=== PATIENT | female | born 1960 | race Caucasian/White ===

== ENCOUNTER 2016-11-15 21:38 | Emergency (ER) | payer OTHER ==
[~2016-11-15] VITALS: Ht 170.2 cm; Wt 100.0 kg
[2016-11-15 21:43] VITALS: BP 154/88
[2016-11-15] MEDS ORDERED: KETOROLAC 30 MG/1 ML ONE (22:23)
[2016-11-15] MEDS ORDERED: OXYcodone/APAP 5/325MG TABLET ONE (22:23)
[2016-11-15] MEDS ORDERED: CYCLOBENZAPRINE 10 MG TABLET PO ONE (22:30)
[2016-11-15] MEDS ORDERED: KETOROLAC 30 MG/1 ML IM ONE (22:30)
[2016-11-15] MEDS ORDERED: OXYcodone/APAP 5/325MG TABLET PO ONE (22:30)
[2016-11-15] MEDS ORDERED: CYCLOBENZAPRINE 10 MG TABLET ONE (23:05)
== END 2016-11-16 00:27 | disposition home or self-care (01) ==
LOC: ED 23:59
DX: S80.01XA Contusion of right knee, initial encounter (principal); S90.31XA Contusion of right foot, initial encounter; S93.401A Sprain of unspecified ligament of right ankle, initial encounter; W19.XXXA Unspecified fall, initial encounter; Y93.89 Activity, other specified; Y99.8 Other external cause status; Y92.488 Other paved roadways as the place of occurrence of the external cause
CPT/HCPCS: 73564; 73590; 73630; 96372; 99284; J1885